=== PATIENT | female | born 1935 | race Caucasian/White ===

== ENCOUNTER 2016-07-12 14:44 | Inpatient (IN) | payer MEDICARE, OTHER ==
[~2016-07-12] VITALS: Ht 165.1 cm; Wt 68.0 kg
[2016-07-12] MEDS ORDERED: IV NORMAL SALINE 1000ML BAG 1,000 ML IV SCH (15:39)
--- NOTE | 2016-07-12 15:43 | ED.ADGEN ---
Past Medical History Past Medical History: CVA Past Surgical History: Other Additional Past Surgical Histo: UNKNOWN Alcohol Use: None Drug Use: None Adult General Chief Complaint Chief Complaint: SEIZURE HPI HPI Patient is a 81 year old female brought to emergency department after a witnessed seizure. Per EMS report a neighbor had gone over to visit and when she opened the door she witnessed her seizing. The patient was a bit confused and possibly postictal when she arrived in the emergency department. By time that I saw her she was still confused but was able to provide me poor although some history. She denies any history of seizures. She reports a history of hypertension for which she takes blood pressure medicine although she cannot recall the names of them. He does remember that she gets her medications filled at [facility] at [address] Her son did pull me into the hallway and tell me that his mom is withholding some information. He tells me that she is a daily drinker. He believes that she had at least a "partial stroke" about 8 months ago. Review of Systems Review of Systems Constitutional: Denies fever or chills. [] Eyes: Denies change in visual acuity. [] HENT: Denies nasal congestion or sore throat. [] Respiratory: Denies cough or shortness of breath. [] Cardiovascular: Denies chest pain or edema. [] GI: Denies abdominal pain, nausea, vomiting, bloody stools or diarrhea. [] : Denies dysuria. [] Musculoskeletal: Denies back pain or joint pain. [] Integument: Denies rash. [] Neurologic: Denies headache, focal weakness or sensory changes. [] Endocrine: Denies polyuria or polydipsia. [] Lymphatic: Denies swollen glands. [] Psychiatric: Denies depression or anxiety. [] Current Medications Current Medications Current Medications Medications (Trade) Dose Ordered Sig/Anthony Start Time Stop Time Status Last Admin Dose Admin Sodium Chloride (Iv Sodium Chloride 0.9% 1000ml Bag) 1,000 ml @ 1,000 mls/hr Q1H 07/12/16 15:39 07/12/16 16:38 DC 07/12/16 16:08 1,000 MLS/HR Allergies Allergies Allergies Coded Allergies Type Severity Reaction Last Updated Verified No Known Drug Allergies 07/12/16 No Physical Exam Physical Exam Constitutional: Well developed, well nourished, no acute distress, non-toxic appearance. [] HENT: Normocephalic, atraumatic, bilateral external ears normal, oropharynx moist, no oral exudates, nose normal. [] Eyes: PERRLA, EOMI, conjunctiva normal, no discharge. [] Neck: Normal range of motion, no tenderness, supple, no stridor. [] Cardiovascular:Heart rate regular rhythm, no murmur [] Lungs & Thorax: Bilateral breath sounds clear to auscultation [] Abdomen: Bowel sounds normal, soft, no tenderness, no masses, no pulsatile masses. [] Skin: Warm, dry, no erythema, no rash. [] Back: No tenderness, no CVA tenderness. [] Extremities: No tenderness, no cyanosis, no clubbing, ROM intact, no edema. [] Neurologic: Alert and oriented X person and place, normal motor function, normal sensory function, no focal deficits noted. [] Psychologic: Affect normal, judgement normal, mood normal. [] Current Patient Data Vital Signs Vital Signs Date Time Temp Pulse Resp B/P Pulse Ox O2 Delivery O2 Flow Rate FiO2 07/12/16 14:44 97.7 97 20 142/71 93 Room Air 97.7 Lab Values Laboratory Tests Test 07/12/16 15:10 07/12/16 15:20 Urine Collection Type U cath Urine Color Dk yellow Urine Clarity Turbid Urine pH 5.5 Urine Specific [place] 1.015 Urine Protein 100mg/dL (NEG-TRACE) Urine Glucose (UA) Negativemg/dL (NEG) Urine Ketones (Stick) 15mg/dL (NEG) Urine Blood Moderate (NEG) Urine Nitrite Positive (NEG) Urine Bilirubin Negative (NEG) Urine Urobilinogen Dipstick 1.0mg/dL (0.2 mg/dL) Urine Leukocyte Esterase Large (NEG) Urine RBC 3-5/HPF (0-2) Urine WBC Tntc/HPF (0-4) Urine Squamous Epithelial Cells Occ/LPF Urine Transitional Epithelial Cells Occ/LPF Urine Renal Epithelial Cells Occ/LPF Urine Bacteria Many/HPF (0-FEW) Urine Hyaline Casts Occasional/HPF Urine Mucus Slight/LPF Urine Opiates Screen Neg (NEG) Urine Methadone Screen Neg (NEG) Urine Barbiturates Neg (NEG) Urine Phencyclidine Screen Neg (NEG) Urine Amphetamine/Methamphetamine Neg (NEG) Urine Benzodiazepines Screen Neg (NEG) Urine Cocaine Screen Neg (NEG) Urine Cannabinoids Screen Neg (NEG) Urine Ethyl Alcohol Pos (NEG) White Blood Count 7.0x10^3/uL (4.0-11.0) Red Blood Count 3.23x10^6/uL (3.50-5.40) L Hemoglobin 12.0g/dL (12.0-15.5) Hematocrit 33.9% (36.0-47.0) L Mean Corpuscular Volume 105fL (79-100) H Mean Corpuscular Hemoglobin 37pg (25-35) H Mean Corpuscular Hemoglobin Concent 36g/dL (31-37) Red Cell Distribution Width 15.2% (11.5-14.5) H Platelet Count 229x10^3/uL (140-400) Neutrophils (%) (Auto) 83% (31-73) H Lymphocytes (%) (Auto) 11% (24-48) L Monocytes (%) (Auto) 5% (0-9) Eosinophils (%) (Auto) 1% (0-3) Basophils (%) (Auto) 1% (0-3) Neutrophils # (Auto) 5.8x10^3uL (1.8-7.7) Lymphocytes # (Auto) 0.8x10^3/uL (1.0-4.8) L Monocytes # (Auto) 0.3x10^3/uL (0.0-1.1) Eosinophils # (Auto) 0.0x10^3/uL (0.0-0.7) Basophils # (Auto) 0.0x10^3/uL (0.0-0.2) Prothrombin Time 14.2SEC (11.7-14.0) H Prothrombin Time INR 1.2 (0.8-1.1) H PTT 31SEC (24-38) Sodium Level 128mmol/L (136-145) L Potassium Level 3.7mmol/L (3.5-5.1) Chloride Level 88mmol/L (98-107) L Carbon Dioxide Level 17mmol/L (21-32) L Anion Gap 23 (6-14) H Blood Urea Nitrogen 10mg/dL (7-20) Creatinine 0.8mg/dL (0.6-1.0) Estimated GFR (Cockcroft-Gault) 69.2 BUN/Creatinine Ratio 13 (6-20) Glucose Level 115mg/dL (70-99) H Calcium Level 9.3mg/dL (8.5-10.1) Total Bilirubin 1.4mg/dL (0.2-1.0) H Aspartate Amino Transferase (AST) 111U/L (15-37) H Alanine Aminotransferase (ALT) 91U/L (14-59) H Alkaline Phosphatase 75U/L (46-116) Creatine Kinase 87U/L (26-192) Creatine Kinase MB (Mass) 2.5ng/mL (0.0-3.6) Creatine Kinase MB Relative Index 2.9% (0-4) Troponin I Quantitative < 0.017ng/mL (0.000-0.055) MI-Ovl-L-Type Natriuretic Peptide 282pg/mL (0-449) Total Protein 8.0g/dL (6.4-8.2) Albumin 4.1g/dL (3.4-5.0) Albumin/Globulin Ratio 1.1 (1.0-1.7) Lipase 91U/L (73-393) Ethyl Alcohol Level 16mg/dL (0-10) H Laboratory Tests 07/12/16 15:20 Laboratory Tests 07/12/16 15:20 EKG EKG EKG interpreted by me, sinus tachycardia, 101 beats for minute, leftward axis, no ST segment elevation. [] Radiology/Procedures Radiology/Procedures Chest x-ray interpreted by me, no acute cardiopulmonary process. PROCEDURE CT head without contrast dated 07/12/2016. HISTORY Altered mental status. History old of CVA. TECHNIQUE Contiguous axial imaging of the head was performed from skull base to vertex.Exposure: One or more of the following individualized dose reduction techniques were utilized for this exam: 1. Automated exposure control. 2. Adjustment of the mA and/or kV according to patient size. 3. Use of iterative reconstruction technique. COMPARISON None. FINDINGS Ventricles and sulci are mildly prominent for age. No midline shift or mass effect. Brain parenchyma is of normal attenuation. No hemorrhage or extra-axial collection. Minimal patchy low density in the deep/subcortical periventricular white matter. Posterior fossa and brainstem unremarkable. Visualized paranasal sinuses and mastoid air cells are clear. No acute calvarial abnormality. IMPRESSION - No evidence of acute intracranial hemorrhage or mass. - Mild chronic small vessel ischemic changes and atrophy. Electronically signed by: Dank Sloan (Jul 12, 2016 17:02:24)[] Course & Med Decision Making Course & Med Decision Making Pertinent Labs and Imaging studies reviewed. (See chart for details) Patient has had no more issues while here in the emergency department although she does remain alert and oriented only to person and place. She does still have trace of alcohol less than her system. She is hyponatremic. We have started replacing her fluids. She does have a urinary tract infection. I have ordered a dose of Rocephin for her here in the emergency department. She will be admitted to the hospitalist service for further evaluation and treatment. [] Dragon Disclaimer Dragon Disclaimer This electronic medical record was generated, in whole or in part, using a voice recognition dictation system. ONEAL MCFARLANE MD Jul 12, 2016 15:43
--- NOTE | 2016-07-12 15:44 | EKG ---
[facility] [address] [place] [address] Test Date: 2016-07-12 Test Time: 15:09:09 Pat Name: JEOVANNY MOE Department: Room: Gender: F Building D[place]antler: : 1935 Requested By: ONEAL MCFARLANE Order Number: [id number] Reading MD: Malissa Mayes Measurements Intervals [place] Rate: 101 P: -68 W[place]: 130 QRS: -14 QRSD: 96 T: 40 QT: 342 QTc: 444 Interpretive Statements SINUS TACHYCARDIA LEFTWARD AXIS NO SPECIFIC ECG ABNORMALITIES RI6.01 No previous ECG available for comparison Electronically Signed On 07-13-2016 19:18:12 CDT by Malissa Mayes
[2016-07-12 15:51] LABS: BILIRUBIN,URINE NEGATIVE (NEG); GLUCOSE,URINE NEGATIVE (NEG); NITRITE,URINE POSITIVE (NEG); PH,URINE 5.5; PROTEIN,URINE 100 mg/dL (NEG-TRACE)
[2016-07-12 15:52] LABS: BASO % 1 % (0-3); EOS % 1 % (0-3); HEMATOCRIT 33.9 % (36.0-47.0); LYMPH # 0.8 x10^3/uL (1.0-4.8); LYMPH % 11 % (24-48); MEAN CORPUSCULAR HEMOGLOBIN 37 pg (25-35); MEAN CORPUSCULAR HGB CONC 36 g/dL (31-37); MEAN CORPUSCULAR VOLUME 105 fL (79-100); MONO % 5 % (0-9); NEUT % 83 % (31-73); PLATELET COUNT 229 x10^3/uL (140-400); RED BLOOD COUNT 3.23 x10^6/uL (3.50-5.40); RED CELL DISTRIBUTION WIDTH 15.2 % (11.5-14.5)
[2016-07-12 16:01] LABS: INR 1.2 (0.8-1.1); PROTHROMBIN TIME PATIENT 14.2 SEC (11.7-14.0)
[2016-07-12 16:02] LABS: BACTERIA,URINE MANY /HPF (0-FEW); SQUAMOUS EPITHELIAL CELL,UR OCC /LPF; WBC,URINE TNTC /HPF (0-4)
[2016-07-12 16:04] LABS: CALCIUM 9.3 mg/dL (8.5-10.1); CREATININE 0.8 mg/dL (0.6-1.0); GFR 69.2; POTASSIUM 3.7 mmol/L (3.5-5.1)
[2016-07-12 16:09] LABS: BARBITURATES NEG (NEG); BENZODIAZEPINES NEG (NEG); CANNABINOIDS NEG (NEG); COCAINE NEG (NEG); METHADONE NEG (NEG); OPIATES NEG (NEG); PHENCYCLIDINE NEG (NEG)
[2016-07-12 16:09] LABS: ALBUMIN 4.1 g/dL (3.4-5.0); ALBUMIN/GLOBULIN RATIO 1.1 (1.0-1.7); TOTAL BILIRUBIN 1.4 mg/dL (0.2-1.0)
[2016-07-12 16:10] LABS: ETHANOL, URINE POS (NEG)
[2016-07-12 16:17] LABS: CKMB INDEX 2.9 % (0-4); CKMB MASS 2.5 ng/mL (0.0-3.6)
--- NOTE | 2016-07-12 17:03 | RAD ---
PROCEDURE CT head without contrast dated 07/12/2016. HISTORY Altered mental status. History old of CVA. TECHNIQUE Contiguous axial imaging of the head was performed from skull base to vertex.Exposure: One or more of the following individualized dose reduction techniques were utilized for this exam: 1. Automated exposure control. 2. Adjustment of the mA and/or kV according to patient size. 3. Use of iterative reconstruction technique. COMPARISON None. FINDINGS Ventricles and sulci are mildly prominent for age. No midline shift or mass effect. Brain parenchyma is of normal attenuation. No hemorrhage or extra-axial collection. Minimal patchy low density in the deep/subcortical periventricular white matter. Posterior fossa and brainstem unremarkable. Visualized paranasal sinuses and mastoid air cells are clear. No acute calvarial abnormality. IMPRESSION - No evidence of acute intracranial hemorrhage or mass. - Mild chronic small vessel ischemic changes and atrophy. Electronically signed by: Dank Sloan (Jul 12, 2016 17:02:24)
[2016-07-12] MEDS: IV NORMAL SALINE 1000ML BAG 1,000 ML IV SCH (17:27)
[2016-07-12] MEDS ORDERED: ONDANSETRON PF 4 MG/2 ML VIAL. IV PRN (17:30)
--- NOTE | 2016-07-12 17:54 | ACF ---
Admission Forms Criteria SEIZURE Clinical Indications for Admission to Inpatient Care (Place 'X' for any and all applicable criteria): Admission is indicated for seizure and ANY ONE of the following(1)(2)(3)(4)(5): [X]I. Inpatient admission required rather than observation care (Also use Seizure: Observation Care Criteria as appropriate) because of ANY ONE of the following: [ ]a) Altered mental status that is severe or persistent [ ]b) New focal neurologic deficit that is severe or persistent [X]c) Metabolic disorder (eg, hypoglycemia, hyponatremia) that is severe or persistent [ ]d) Recurrent seizure [ ]e) Outpatient antiseizure regimen cannot be established (eg , patient cannot tolerate medication, initiation requires inpatient care) [ ]f) Need for ongoing intravenous infusion of antiseizure medication [ ]g) Cardiac arrhythmias of immediate concern [ ]h) Cerebral bleeding, hydrocephalus, or vasospasm monitoring (14) [ ]i) Increased intracranial pressure or cerebral edema monitoring (15) [ ]j) Other treatment or monitoring requiring inpatient admission [ ]II. Status epilepticus [A] or repetitive seizures not controlled with emergent treatment (6)(8) [ ]III. Brain disorder (eg, tumor, edema, and hydrocephalus) that requiring monitoring or intervention available only at inpatient level of care. [ ]IV. Brain insult (eg, severe trauma, stroke, drug toxicity, or withdrawal) that requires monitoring or intervention available only at inpatient level of care (10)(11) Extended stay beyond goal length of stay may be needed for (22) [ ]a) Complications of status epilepticus [ ]b) Refractory status epilepticus [ ]c) Etiology-specific therapy for conditions such as REGULATORY PROCESS MANAGER infection, head injury,eclampsia, severe metabolic abnormalities, and brain tumor [ ]d) Residual neurologic damage, [ ]e) Initiation of significant change to anticonvulsant treatment [ ]f) Older patients (65 years or older) [ ]g) Patient requiring intubation (eg, to protect airway) The original [employer] content created by [employer] has been revised. The portions of the content which have been revised are identified through the use of italic text or in bold, and [facility] [employer] has neither reviewed nor approved the modified material. All other unmodified content is copyright [facility] [employer]. Please see references footnoted in the original [facility] edition 2016 Admission Criteria Met?: Yes ÁNGEL HASTINGS Jul 12, 2016 17:54
[2016-07-12] MEDS ORDERED: CEFTRIAXONE 1GM IVPB FOR OMNI 50 ML IV ONE (18:15)
[2016-07-12] MEDS ORDERED: LISI-334 PO (19:52)
[2016-07-12] MEDS: METOPROLOL TART IMMED RELEASE 25 MG TABLET. PO SCH (20:25)
--- NOTE | 2016-07-12 21:31 | HP ---
ADMIT DATE: 07/12/2016 CHIEF COMPLAINT: Seizure. HISTORY OF PRESENT ILLNESS: The patient is a 81-year-old woman with past medical history of CVA, hypertension, who was brought to the Emergency Room after a witnessed seizure. The patient herself remembers only that she had come down her stairs to open the front door for her neighbor. At which time she felt dizzy and lightheaded. She does not remember further events until waking up in the Emergency Room. Her girlfriend neighbor, who had come, visiting reported that the seizure, called EMS. She was, however, not present in the Emergency Room. PAST MEDICAL HISTORY: Hypertension, CVA. FAMILY HISTORY: Positive only for hypertension. SOCIAL HISTORY: Lives by herself, x 6 years. Never smoked, drinks 1 vodka and sprite every night. ALLERGIES: No known drug allergies. HOME MEDICATIONS: Not available at this time. She does not recall names. REVIEW OF SYSTEMS: The patient is currently coherent, denies any ongoing aches or pains. No headache, vision problems, weakness or other neurological symptoms. Rest of organ system review is negative. PHYSICAL EXAMINATION: VITAL SIGNS: From today show a blood pressure of 168/76, heart rate of 100, respiratory rate of 22. She is afebrile. GENERAL: This is a well-nourished, 81-year-old, woman, alert and oriented, in no acute distress. Affect is flat. HEENT: Shows no scleral icterus. NECK: Supple. LUNGS: Clear to auscultation bilaterally. CARDIOVASCULAR: Heart is regular rate and rhythm without any murmurs. ABDOMEN: Has positive bowel sounds, soft, nontender. EXTREMITIES: Show no edema, no clubbing, no cyanosis. SKIN: Warm, soft and dry without any rash. LABORATORY DATA: CBC with a WBC of 7.0, hemoglobin 12.0, MCV of 105, platelets of 229, BUN and creatinine of 10 and 0.8, sodium of 128 with chloride of 88, potassium at 3.7. LFTs with an AST, ALT of 111 and 91, total bilirubin at 1.4, alkaline phosphatase at 75, CK and initial troponin are negative. Albumin at 4.1. Coags are within normal limits. Urine with TNTC, wbc and many bacteria. Tox screen positive at 16. IMAGING: CT of the head without any contrast shows no evidence of acute intracranial hemorrhage or mass, mild chronic small vessel ischemic changes and atrophy are noted. ASSESSMENT AND PLAN: The patient is a 81-year-old woman, who was noted to have an episode of shaking. It is not quite clear if this was a true seizure versus tremoring with syncope. We will obtain Neurology and Cardiology consults for further workup. She does have a history of hypertension and potential cardiovascular accident according to the son. No evidence of new stroke on recent CT this morning. She will be placed on tele. We will monitor her blood pressures, start her on aspirin 325, start beta blockers. We will check lipid profile as well and probably placed on statin. The patient does have a history of alcohol use. She admits to a single drink. However, her alcohol level at 9:30 in the morning was actually positive. I am not sure if she actually drinks more than she admits to. Monitor. Low threshold for starting CIWA protocol. She has a macrocytic anemia, which may be B12 or folate deficiency, but in this patient is suspicious for alcohol-induced abnormality. Labs pending. Also, transaminases and bilirubin are elevated, possibly due to chronic alcohol abuse. Hepatitis panel will be obtained. She presents with signs of UTI as well. Culture is pending. In the meantime, she has been started on mpiric ceftriaxone. Hyponatremia, at this time is unexplained. Levels are not really low enough to be responsible for seizures unless this was a sudden drop. There is no history of that suggest that recently any changes have occurred, could be responsible for this. We will replete with IV fluids, recheck in the morning. ANGELA MICHELLE MD DR: YOU/nts JOB#: [id number] / [id number] BRIAN
[2016-07-12 23:00] VITALS: BP 131/83
[2016-07-13] MEDS: IV NORMAL SALINE 1000ML BAG 1,000 ML IV SCH ×2 (02:49→11:12)
[2016-07-13 03:27] VITALS: BP 174/93
[2016-07-13 04:48] LABS: BASO % 0 % (0-3); EOS % 0 % (0-3); HEMATOCRIT 33.7 % (36.0-47.0); LYMPH # 0.7 x10^3/uL (1.0-4.8); LYMPH % 11 % (24-48); MEAN CORPUSCULAR HEMOGLOBIN 37 pg (25-35); MEAN CORPUSCULAR HGB CONC 36 g/dL (31-37); MEAN CORPUSCULAR VOLUME 104 fL (79-100); MONO % 7 % (0-9); NEUT % 81 % (31-73); PLATELET COUNT 184 x10^3/uL (140-400); RED BLOOD COUNT 3.25 x10^6/uL (3.50-5.40); RED CELL DISTRIBUTION WIDTH 15.1 % (11.5-14.5); WHITE BLOOD COUNT 6.4 x10^3/uL (4.0-11.0)
[2016-07-13 05:15] LABS: ALBUMIN 3.9 g/dL (3.4-5.0); CREATININE 0.6 mg/dL (0.6-1.0); GFR 96.4; MAGNESIUM 1.4 mg/dL (1.8-2.4); POTASSIUM 3.5 mmol/L (3.5-5.1); TOTAL PROTEIN 7.8 g/dL (6.4-8.2)
[2016-07-13 05:16] LABS: CHOLESTEROL 226 mg/dL (0-200); TRIGLYCERIDES 43 mg/dL (0-150)
[2016-07-13 05:41] LABS: HDLC > 150 mg/dL (40-60)
[2016-07-13 07:15] VITALS: BP 173/90
[2016-07-13] MEDS: ASPIRIN ENTERIC COATED 325 MG TABLET.DR. PO SCH (08:02)
[2016-07-13] MEDS: METOPROLOL TART IMMED RELEASE 25 MG TABLET. PO SCH ×2 (08:03→20:50)
--- NOTE | 2016-07-13 08:24 | RAD ---
EXAM: Chest, single view. HISTORY: Altered mental status. COMPARISON: None. FINDINGS: A frontal view of the chest is obtained. There is no infiltrate, effusion or pneumothorax. The heart is normal in size for portable technique. IMPRESSION: No acute pulmonary finding.
[2016-07-13 10:50] VITALS: BP 151/74
--- NOTE | 2016-07-13 10:52 | PDOC ---
PROGRESS NOTES Chief Complaint Chief Complaint Seizure Hyponatremia UTI Hypertension CVA. 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 History of Present Illness History of Present Illness A&O VSS Talkative DW RN In bed resting Vitals Vitals Vital Signs Date Time Temp Pulse Resp B/P Pulse Ox O2 Delivery O2 Flow Rate FiO2 07/13/16 08:03 79 173/90 07/13/16 07:30 Room Air 07/13/16 07:15 97.5 20 96 97.5 Physical Exam General: Alert, Oriented X3 Heart: Regular rate, Normal S1 Lungs: Clear Abdomen: Normal bowel sounds, Soft Extremities: No clubbing, No cyanosis Skin: No rashes, No breakdown Labs LABS Laboratory Tests Test 07/12/16 15:10 07/12/16 15:20 07/13/16 04:10 Urine Collection Type U cath Urine Color Dk yellow Urine Clarity Turbid Urine pH 5.5 Urine Specific Carefree 1.015 Urine Protein 100mg/dL (NEG-TRACE) Urine Glucose (UA) Negativemg/dL (NEG) Urine Ketones (Stick) 15mg/dL (NEG) Urine Blood Moderate (NEG) Urine Nitrite Positive (NEG) Urine Bilirubin Negative (NEG) Urine Urobilinogen Dipstick 1.0mg/dL (0.2 mg/dL) Urine Leukocyte Esterase Large (NEG) Urine RBC 3-5/HPF (0-2) Urine WBC Tntc/HPF (0-4) Urine Squamous Epithelial Cells Occ/LPF Urine Transitional Epithelial Cells Occ/LPF Urine Renal Epithelial Cells Occ/LPF Urine Bacteria Many/HPF (0-FEW) Urine Hyaline Casts Occasional/HPF Urine Mucus Slight/LPF Urine Opiates Screen Neg (NEG) Urine Methadone Screen Neg (NEG) Urine Barbiturates Neg (NEG) Urine Phencyclidine Screen Neg (NEG) Urine Amphetamine/Methamphetamine Neg (NEG) Urine Benzodiazepines Screen Neg (NEG) Urine Cocaine Screen Neg (NEG) Urine Cannabinoids Screen Neg (NEG) Urine Ethyl Alcohol Pos (NEG) White Blood Count 7.0x10^3/uL (4.0-11.0) 6.4x10^3/uL (4.0-11.0) Red Blood Count 3.23x10^6/uL (3.50-5.40) 3.25x10^6/uL (3.50-5.40) Hemoglobin 12.0g/dL (12.0-15.5) 12.0g/dL (12.0-15.5) Hematocrit 33.9% (36.0-47.0) 33.7% (36.0-47.0) Mean Corpuscular Volume 105fL (79-100) 104fL (79-100) Mean Corpuscular Hemoglobin 37pg (25-35) 37pg (25-35) Mean Corpuscular Hemoglobin Concent 36g/dL (31-37) 36g/dL (31-37) Red Cell Distribution Width 15.2% (11.5-14.5) 15.1% (11.5-14.5) Platelet Count 229x10^3/uL (140-400) 184x10^3/uL (140-400) Neutrophils (%) (Auto) 83% (31-73) 81% (31-73) Lymphocytes (%) (Auto) 11% (24-48) 11% (24-48) Monocytes (%) (Auto) 5% (0-9) 7% (0-9) Eosinophils (%) (Auto) 1% (0-3) 0% (0-3) Basophils (%) (Auto) 1% (0-3) 0% (0-3) Neutrophils # (Auto) 5.8x10^3uL (1.8-7.7) 5.2x10^3uL (1.8-7.7) Lymphocytes # (Auto) 0.8x10^3/uL (1.0-4.8) 0.7x10^3/uL (1.0-4.8) Monocytes # (Auto) 0.3x10^3/uL (0.0-1.1) 0.4x10^3/uL (0.0-1.1) Eosinophils # (Auto) 0.0x10^3/uL (0.0-0.7) 0.0x10^3/uL (0.0-0.7) Basophils # (Auto) 0.0x10^3/uL (0.0-0.2) 0.0x10^3/uL (0.0-0.2) Prothrombin Time 14.2SEC (11.7-14.0) Prothromb Time International Ratio 1.2 (0.8-1.1) Activated Partial Thromboplast Time 31SEC (24-38) Sodium Level 128mmol/L (136-145) 132mmol/L (136-145) Potassium Level 3.7mmol/L (3.5-5.1) 3.5mmol/L (3.5-5.1) Chloride Level 88mmol/L (98-107) 95mmol/L (98-107) Carbon Dioxide Level 17mmol/L (21-32) 26mmol/L (21-32) Anion Gap 23 (6-14) 11 (6-14) Blood Urea Nitrogen 10mg/dL (7-20) 8mg/dL (7-20) Creatinine 0.8mg/dL (0.6-1.0) 0.6mg/dL (0.6-1.0) Estimated GFR (Cockcroft-Gault) 69.2 96.4 BUN/Creatinine Ratio 13 (6-20) 13 (6-20) Glucose Level 115mg/dL (70-99) 111mg/dL (70-99) Calcium Level 9.3mg/dL (8.5-10.1) 9.0mg/dL (8.5-10.1) Total Bilirubin 1.4mg/dL (0.2-1.0) 2.0mg/dL (0.2-1.0) Aspartate Amino Transf (AST/SGOT) 111U/L (15-37) 80U/L (15-37) Alanine Aminotransferase (ALT/SGPT) 91U/L (14-59) 81U/L (14-59) Alkaline Phosphatase 75U/L (46-116) 71U/L (46-116) Creatine Kinase 87U/L (26-192) Creatine Kinase MB (Mass) 2.5ng/mL (0.0-3.6) Creatine Kinase MB Relative Index 2.9% (0-4) Troponin I Quantitative < 0.017ng/mL (0.000-0.055) SD-Zre-T-Type Natriuretic Peptide 282pg/mL (0-449) Total Protein 8.0g/dL (6.4-8.2) 7.8g/dL (6.4-8.2) Albumin 4.1g/dL (3.4-5.0) 3.9g/dL (3.4-5.0) Albumin/Globulin Ratio 1.1 (1.0-1.7) 1.0 (1.0-1.7) Lipase 91U/L (73-393) Ethyl Alcohol Level 16mg/dL (0-10) Magnesium Level 1.4mg/dL (1.8-2.4) Triglycerides Level 43mg/dL (0-150) Cholesterol Level 226mg/dL (0-200) LDL Cholesterol, Calculated 67mg/dL (0-100) VLDL Cholesterol, Calculated 9mg/dL (0-40) HDL Cholesterol > 150mg/dL (40-60) Cholesterol/HDL Ratio 1.0 Review of Systems Review of Systems co weakness co pain Assessment and Plan Assessmemt and Plan Problems Medical Problems: (1) Alcohol abuse Status: Acute (2) Hyponatremia Status: Acute (3) Seizure Status: Acute (4) UTI (urinary tract infection) Status: Acute Assessment: Seizure Hyponatremia UTI Hypertension CVA. 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 Labs Laboratory Tests Test 07/12/16 15:10 07/12/16 15:20 07/13/16 04:10 Urine Collection Type U cath Urine Color Dk yellow Urine Clarity Turbid Urine pH 5.5 Urine Specific Carefree 1.015 Urine Protein 100mg/dL (NEG-TRACE) Urine Glucose (UA) Negativemg/dL (NEG) Urine Ketones (Stick) 15mg/dL (NEG) Urine Blood Moderate (NEG) Urine Nitrite Positive (NEG) Urine Bilirubin Negative (NEG) Urine Urobilinogen Dipstick 1.0mg/dL (0.2 mg/dL) Urine Leukocyte Esterase Large (NEG) Urine RBC 3-5/HPF (0-2) Urine WBC Tntc/HPF (0-4) Urine Squamous Epithelial Cells Occ/LPF Urine Transitional Epithelial Cells Occ/LPF Urine Renal Epithelial Cells Occ/LPF Urine Bacteria Many/HPF (0-FEW) Urine Hyaline Casts Occasional/HPF Urine Mucus Slight/LPF Urine Opiates Screen Neg (NEG) Urine Methadone Screen Neg (NEG) Urine Barbiturates Neg (NEG) Urine Phencyclidine Screen Neg (NEG) Urine Amphetamine/Methamphetamine Neg (NEG) Urine Benzodiazepines Screen Neg (NEG) Urine Cocaine Screen Neg (NEG) Urine Cannabinoids Screen Neg (NEG) Urine Ethyl Alcohol Pos (NEG) White Blood Count 7.0x10^3/uL (4.0-11.0) 6.4x10^3/uL (4.0-11.0) Red Blood Count 3.23x10^6/uL (3.50-5.40) 3.25x10^6/uL (3.50-5.40) Hemoglobin 12.0g/dL (12.0-15.5) 12.0g/dL (12.0-15.5) Hematocrit 33.9% (36.0-47.0) 33.7% (36.0-47.0) Mean Corpuscular Volume 105fL (79-100) 104fL (79-100) Mean Corpuscular Hemoglobin 37pg (25-35) 37pg (25-35) Mean Corpuscular Hemoglobin Concent 36g/dL (31-37) 36g/dL (31-37) Red Cell Distribution Width 15.2% (11.5-14.5) 15.1% (11.5-14.5) Platelet Count 229x10^3/uL (140-400) 184x10^3/uL (140-400) Neutrophils (%) (Auto) 83% (31-73) 81% (31-73) Lymphocytes (%) (Auto) 11% (24-48) 11% (24-48) Monocytes (%) (Auto) 5% (0-9) 7% (0-9) Eosinophils (%) (Auto) 1% (0-3) 0% (0-3) Basophils (%) (Auto) 1% (0-3) 0% (0-3) Neutrophils # (Auto) 5.8x10^3uL (1.8-7.7) 5.2x10^3uL (1.8-7.7) Lymphocytes # (Auto) 0.8x10^3/uL (1.0-4.8) 0.7x10^3/uL (1.0-4.8) Monocytes # (Auto) 0.3x10^3/uL (0.0-1.1) 0.4x10^3/uL (0.0-1.1) Eosinophils # (Auto) 0.0x10^3/uL (0.0-0.7) 0.0x10^3/uL (0.0-0.7) Basophils # (Auto) 0.0x10^3/uL (0.0-0.2) 0.0x10^3/uL (0.0-0.2) Prothrombin Time 14.2SEC (11.7-14.0) Prothromb Time International Ratio 1.2 (0.8-1.1) Activated Partial Thromboplast Time 31SEC (24-38) Sodium Level 128mmol/L (136-145) 132mmol/L (136-145) Potassium Level 3.7mmol/L (3.5-5.1) 3.5mmol/L (3.5-5.1) Chloride Level 88mmol/L (98-107) 95mmol/L (98-107) Carbon Dioxide Level 17mmol/L (21-32) 26mmol/L (21-32) Anion Gap 23 (6-14) 11 (6-14) Blood Urea Nitrogen 10mg/dL (7-20) 8mg/dL (7-20) Creatinine 0.8mg/dL (0.6-1.0) 0.6mg/dL (0.6-1.0) Estimated GFR (Cockcroft-Gault) 69.2 96.4 BUN/Creatinine Ratio 13 (6-20) 13 (6-20) Glucose Level 115mg/dL (70-99) 111mg/dL (70-99) Calcium Level 9.3mg/dL (8.5-10.1) 9.0mg/dL (8.5-10.1) Total Bilirubin 1.4mg/dL (0.2-1.0) 2.0mg/dL (0.2-1.0) Aspartate Amino Transf (AST/SGOT) 111U/L (15-37) 80U/L (15-37) Alanine Aminotransferase (ALT/SGPT) 91U/L (14-59) 81U/L (14-59) Alkaline Phosphatase 75U/L (46-116) 71U/L (46-116) Creatine Kinase 87U/L (26-192) Creatine Kinase MB (Mass) 2.5ng/mL (0.0-3.6) Creatine Kinase MB Relative Index 2.9% (0-4) Troponin I Quantitative < 0.017ng/mL (0.000-0.055) EP-Pdg-M-Type Natriuretic Peptide 282pg/mL (0-449) Total Protein 8.0g/dL (6.4-8.2) 7.8g/dL (6.4-8.2) Albumin 4.1g/dL (3.4-5.0) 3.9g/dL (3.4-5.0) Albumin/Globulin Ratio 1.1 (1.0-1.7) 1.0 (1.0-1.7) Lipase 91U/L (73-393) Ethyl Alcohol Level 16mg/dL (0-10) Magnesium Level 1.4mg/dL (1.8-2.4) Triglycerides Level 43mg/dL (0-150) Cholesterol Level 226mg/dL (0-200) LDL Cholesterol, Calculated 67mg/dL (0-100) VLDL Cholesterol, Calculated 9mg/dL (0-40) HDL Cholesterol > 150mg/dL (40-60) Cholesterol/HDL Ratio 1.0 Laboratory Tests Test 07/12/16 15:10 07/12/16 15:20 07/13/16 04:10 Urine Collection Type U cath Urine Color Dk yellow Urine Clarity Turbid Urine pH 5.5 Urine Specific Carefree 1.015 Urine Protein 100mg/dL (NEG-TRACE) Urine Glucose (UA) Negativemg/dL (NEG) Urine Ketones (Stick) 15mg/dL (NEG) Urine Blood Moderate (NEG) Urine Nitrite Positive (NEG) Urine Bilirubin Negative (NEG) Urine Urobilinogen Dipstick 1.0mg/dL (0.2 mg/dL) Urine Leukocyte Esterase Large (NEG) Urine RBC 3-5/HPF (0-2) Urine WBC Tntc/HPF (0-4) Urine Squamous Epithelial Cells Occ/LPF Urine Transitional Epithelial Cells Occ/LPF Urine Renal Epithelial Cells Occ/LPF Urine Bacteria Many/HPF (0-FEW) Urine Hyaline Casts Occasional/HPF Urine Mucus Slight/LPF Urine Opiates Screen Neg (NEG) Urine Methadone Screen Neg (NEG) Urine Barbiturates Neg (NEG) Urine Phencyclidine Screen Neg (NEG) Urine Amphetamine/Methamphetamine Neg (NEG) Urine Benzodiazepines Screen Neg (NEG) Urine Cocaine Screen Neg (NEG) Urine Cannabinoids Screen Neg (NEG) Urine Ethyl Alcohol Pos (NEG) White Blood Count 7.0x10^3/uL (4.0-11.0) 6.4x10^3/uL (4.0-11.0) Red Blood Count 3.23x10^6/uL (3.50-5.40) 3.25x10^6/uL (3.50-5.40) Hemoglobin 12.0g/dL (12.0-15.5) 12.0g/dL (12.0-15.5) Hematocrit 33.9% (36.0-47.0) 33.7% (36.0-47.0) Mean Corpuscular Volume 105fL (79-100) 104fL (79-100) Mean Corpuscular Hemoglobin 37pg (25-35) 37pg (25-35) Mean Corpuscular Hemoglobin Concent 36g/dL (31-37) 36g/dL (31-37) Red Cell Distribution Width 15.2% (11.5-14.5) 15.1% (11.5-14.5) Platelet Count 229x10^3/uL (140-400) 184x10^3/uL (140-400) Neutrophils (%) (Auto) 83% (31-73) 81% (31-73) Lymphocytes (%) (Auto) 11% (24-48) 11% (24-48) Monocytes (%) (Auto) 5% (0-9) 7% (0-9) Eosinophils (%) (Auto) 1% (0-3) 0% (0-3) Basophils (%) (Auto) 1% (0-3) 0% (0-3) Neutrophils # (Auto) 5.8x10^3uL (1.8-7.7) 5.2x10^3uL (1.8-7.7) Lymphocytes # (Auto) 0.8x10^3/uL (1.0-4.8) 0.7x10^3/uL (1.0-4.8) Monocytes # (Auto) 0.3x10^3/uL (0.0-1.1) 0.4x10^3/uL (0.0-1.1) Eosinophils # (Auto) 0.0x10^3/uL (0.0-0.7) 0.0x10^3/uL (0.0-0.7) Basophils # (Auto) 0.0x10^3/uL (0.0-0.2) 0.0x10^3/uL (0.0-0.2) Prothrombin Time 14.2SEC (11.7-14.0) Prothromb Time International Ratio 1.2 (0.8-1.1) Activated Partial Thromboplast Time 31SEC (24-38) Sodium Level 128mmol/L (136-145) 132mmol/L (136-145) Potassium Level 3.7mmol/L (3.5-5.1) 3.5mmol/L (3.5-5.1) Chloride Level 88mmol/L (98-107) 95mmol/L (98-107) Carbon Dioxide Level 17mmol/L (21-32) 26mmol/L (21-32) Anion Gap 23 (6-14) 11 (6-14) Blood Urea Nitrogen 10mg/dL (7-20) 8mg/dL (7-20) Creatinine 0.8mg/dL (0.6-1.0) 0.6mg/dL (0.6-1.0) Estimated GFR (Cockcroft-Gault) 69.2 96.4 BUN/Creatinine Ratio 13 (6-20) 13 (6-20) Glucose Level 115mg/dL (70-99) 111mg/dL (70-99) Calcium Level 9.3mg/dL (8.5-10.1) 9.0mg/dL (8.5-10.1) Total Bilirubin 1.4mg/dL (0.2-1.0) 2.0mg/dL (0.2-1.0) Aspartate Amino Transf (AST/SGOT) 111U/L (15-37) 80U/L (15-37) Alanine Aminotransferase (ALT/SGPT) 91U/L (14-59) 81U/L (14-59) Alkaline Phosphatase 75U/L (46-116) 71U/L (46-116) Creatine Kinase 87U/L (26-192) Creatine Kinase MB (Mass) 2.5ng/mL (0.0-3.6) Creatine Kinase MB Relative Index 2.9% (0-4) Troponin I Quantitative < 0.017ng/mL (0.000-0.055) IO-Qul-J-Type Natriuretic Peptide 282pg/mL (0-449) Total Protein 8.0g/dL (6.4-8.2) 7.8g/dL (6.4-8.2) Albumin 4.1g/dL (3.4-5.0) 3.9g/dL (3.4-5.0) Albumin/Globulin Ratio 1.1 (1.0-1.7) 1.0 (1.0-1.7) Lipase 91U/L (73-393) Ethyl Alcohol Level 16mg/dL (0-10) Magnesium Level 1.4mg/dL (1.8-2.4) Triglycerides Level 43mg/dL (0-150) Cholesterol Level 226mg/dL (0-200) LDL Cholesterol, Calculated 67mg/dL (0-100) VLDL Cholesterol, Calculated 9mg/dL (0-40) HDL Cholesterol > 150mg/dL (40-60) Cholesterol/HDL Ratio 1.0 Medications Current Medications Sodium Chloride (Iv Sodium Chloride 0.9% 1000ml Bag) 1,000 ml @ 1,000 mls/hr Q1H IV Last administered on 07/12/16 16:08; Start 07/12/16 at 15:39; Stop at 16:38; Status DC Ondansetron HCl 4 mg 4 mg PRN Q8HRS PRN IV NAUSEA/VOMITING; Start 07/12/16 at 17 :30; Stop 07/13/16 at 17:29 Sodium Chloride 1,000 ml @ 120 mls/hr [id number] IV Last administered on 07/13/16 02:49; Start 07/12/16 at 17:27; Stop 07/13/16 at 17:26 Ceftriaxone Sodium (Rocephin 1gm Ivpb For Omni) 50 ml @ 100 mls/hr 1X ONCE IV Last administered on 07/12/16 17:51; Start 07/12/16 at 18:15; Stop 07/12/16 at 18:44; Status DC Metoprolol Tartrate (Lopressor) 25 mg BID PO Last administered on 07/13/16 08: 03; Start 07/12/16 at 21:00 Aspirin (Ecotrin) 325 mg [id number] PO Last administered on 07/13/16 08:02; Start 07/13/16 at 08:00 Active Scripts Active Reported Lisinopril 20 Mg Tablet 1 Tab PO DAILY Vitals/I & O Vital Sign - Last 24 Hours 07/12/16 07/12/16 07/12/16 07/12/16 14:44 14:54 15:24 15:54 Temp 97.7 97.7 Pulse 97 100 102 100 Resp 20 21 25 B/P 142/71 135/65 158/77 166/82 Pulse Ox 93 93 98 98 O2 Delivery Room Air Room Air Room Air Room Air 07/12/16 07/12/16 07/12/16 07/12/16 16:24 17:30 18:00 20:25 Pulse 100 108 100 100 Resp 17 16 24 B/P 181/77 171/95 168/76 168/76 Pulse Ox 98 98 98 O2 Delivery Room Air Room Air Room Air 07/12/16 07/12/16 07/13/16 07/13/16 21:42 23:00 03:27 07:15 Temp 97.7 97.9 97.5 97.7 97.9 97.5 Pulse 83 81 79 Resp 20 20 20 B/P 131/83 174/93 173/90 Pulse Ox 96 96 96 O2 Delivery Room Air Room Air Room Air Room Air 07/13/16 07/13/16 07:30 08:03 Pulse 79 B/P 173/90 O2 Delivery Room Air Intake and Output 07/12/16 07/12/16 07/13/16 15:00 23:00 07:00 Intake Total 1050 ml 0 ml Output Total 200 ml Balance 1050 ml -200 ml VISH ANGEL III DO Jul 13, 2016 10:52
[2016-07-13 14:56] VITALS: BP 162/83
--- NOTE | 2016-07-13 15:24 | PDOC2 ---
NEUROLOGY CONSULT Date of Admission Date of Admission DATE: 07/13/16 TIME: 15:11 Reason for Consult Reason for Consult: IMPRESSION: Seizure x 1 on 07/12/16. Metabolic encephalopathy. Confusion. Alcohol use. Hyponatremia, Na++ 128 UTI HTN HLD Elevated hepatic enzymes. Hx of CVA? RECOMMENDATIONS/PLAN: EEG No AED is recommended at this time for single provoked seizure. She has been on ASA daily. Zocor 40 mg HS. Vit B1 100 mg daily. Alcohol abstinence. Brain MRI if has further seizure. HISTORY OF THE PRESENT ILLNESS: 81-y-old female patient with above medical diseases has Hx of alcohol drinking 3-4 drinks a day of [place] for more than 2 years. She had a seizure described as a convulsion for a few minutes with postictal state on 07/12/16 to be brought to the ER of [facility]. No Hx of seizure in the past. She said she quit drinking about 2 months ago, but her alcohol level was 16 on test on 07/12. No focalized motor or sensory deficits. PAST MEDICAL HISTORY: Please see above. PAST SURGERY HISTORY: . ALLERGY: Unknown. MEDICATIONS: Refer to [facility] FAMILY HISTORY: Non contributory. SOCIAL HISTORY: Lives alone at home. Her about 1 year ago. She denies current smoking, drinking, and illicit drug use, but her alcohol level was 16 on 07/12. REVIEW OF SYSTEMS: Constitutional: No malnutrition, weight loss, cachexia. Head: No traumatic brain or head injury. Skin: No edema, or rash. Ear: No infection. Eyes: No vision loss or color blindness. Nose: No bleeding or purulent discharges. Hearing: No hearing decrease. Neck: No injury. Breast: No history of cancer, masses,or discharges. Cardiac: HTN, HLD. Pulmonary: No COPD. GI: No GI ulcer, GI bleeding. Urinary/genital: UTI. Endocrinologic: No cousin face, craniofacial dysmorphism. Skeletomuscular: No muscular atrophy, deformity. Neurological: see HP. Psychiatric: Denies drug use/abuse. Otherwise, not [id number] review of systems. PHYSICAL EXAMINATION: General appearance is in subacute distress. HEENT: Normocephalic and nontraumatic. Eyes, nose, ears, and throat are unremarkable. Neck is supple. No lymphadenopathy. No bruits are heard over the carotid artery. No crepitus. Cardiovascular: S1, S2, regular rate and rhythm. Pulmonary: Clear to auscultation bilaterally. Abdomen: Bowel sounds are positive. Abdomen is soft, nontender, and nondistended. Extremities: No rash, lesions, or edema. No restriction of range of motion NEUROLOGICAL EXAMINATION: Awake. Oriented to time, place and person, but reaction was slow. PERRL. EOMI. CN: no focal findings. Muscle tone: within normal. Muscle strength: 5 DTR: 2 Plantar reflex: Flexor response bilaterally Gait: not examined in bed. Sensory exam: no abnormal findings. No obvious cerebellar signs elicited. Current Medications Current Medications Current Medications Sodium Chloride (Iv Sodium Chloride 0.9% 1000ml Bag) 1,000 ml @ 1,000 mls/hr Q1H IV Last administered on 07/12/16 16:08; Start 07/12/16 at 15:39; Stop at 16:38; Status DC Ondansetron HCl 4 mg 4 mg PRN Q8HRS PRN IV NAUSEA/VOMITING; Start 07/12/16 at 17 :30; Stop 07/13/16 at 17:29 Sodium Chloride 1,000 ml @ 120 mls/hr Q8H20M IV Last administered on 07/13/16 11:12; Start 07/12/16 at 17:27; Stop 07/13/16 at 17:26 Ceftriaxone Sodium (Rocephin 1gm Ivpb For Omni) 50 ml @ 100 mls/hr 1X ONCE IV Last administered on 07/12/16 17:51; Start 07/12/16 at 18:15; Stop 07/12/16 at 18:44; Status DC Metoprolol Tartrate (Lopressor) 25 mg BID PO Last administered on 07/13/16 08: 03; Start 07/12/16 at 21:00 Aspirin (Ecotrin) 325 mg DAILYWBKFT PO Last administered on 07/13/16 08:02; Start 07/13/16 at 08:00 Active Scripts Active Reported Lisinopril 20 Mg Tablet 1 Tab PO DAILY Allergies Allergies: Coded Allergies: No Known Drug Allergies (Unverified , 07/12/16) Vitals VITALS Vital Signs Date Time Temp Pulse Resp B/P Pulse Ox O2 Delivery O2 Flow Rate FiO2 07/13/16 14:56 97.7 76 20 162/83 97 Room Air 97.7 Labs Labs Laboratory Tests Test 07/12/16 15:10 07/12/16 15:20 07/13/16 04:10 Urine Collection Type U cath Urine Color Dk yellow Urine Clarity Turbid Urine pH 5.5 Urine Specific [place] 1.015 Urine Protein 100mg/dL (NEG-TRACE) Urine Glucose (UA) Negativemg/dL (NEG) Urine Ketones (Stick) 15mg/dL (NEG) Urine Blood Moderate (NEG) Urine Nitrite Positive (NEG) Urine Bilirubin Negative (NEG) Urine Urobilinogen Dipstick 1.0mg/dL (0.2 mg/dL) Urine Leukocyte Esterase Large (NEG) Urine RBC 3-5/HPF (0-2) Urine WBC Tntc/HPF (0-4) Urine Squamous Epithelial Cells Occ/LPF Urine Transitional Epithelial Cells Occ/LPF Urine Renal Epithelial Cells Occ/LPF Urine Bacteria Many/HPF (0-FEW) Urine Hyaline Casts Occasional/HPF Urine Mucus Slight/LPF Urine Opiates Screen Neg (NEG) Urine Methadone Screen Neg (NEG) Urine Barbiturates Neg (NEG) Urine Phencyclidine Screen Neg (NEG) Urine Amphetamine/Methamphetamine Neg (NEG) Urine Benzodiazepines Screen Neg (NEG) Urine Cocaine Screen Neg (NEG) Urine Cannabinoids Screen Neg (NEG) Urine Ethyl Alcohol Pos (NEG) White Blood Count 7.0x10^3/uL (4.0-11.0) 6.4x10^3/uL (4.0-11.0) Red Blood Count 3.23x10^6/uL (3.50-5.40) 3.25x10^6/uL (3.50-5.40) Hemoglobin 12.0g/dL (12.0-15.5) 12.0g/dL (12.0-15.5) Hematocrit 33.9% (36.0-47.0) 33.7% (36.0-47.0) Mean Corpuscular Volume 105fL (79-100) 104fL (79-100) Mean Corpuscular Hemoglobin 37pg (25-35) 37pg (25-35) Mean Corpuscular Hemoglobin Concent 36g/dL (31-37) 36g/dL (31-37) Red Cell Distribution Width 15.2% (11.5-14.5) 15.1% (11.5-14.5) Platelet Count 229x10^3/uL (140-400) 184x10^3/uL (140-400) Neutrophils (%) (Auto) 83% (31-73) 81% (31-73) Lymphocytes (%) (Auto) 11% (24-48) 11% (24-48) Monocytes (%) (Auto) 5% (0-9) 7% (0-9) Eosinophils (%) (Auto) 1% (0-3) 0% (0-3) Basophils (%) (Auto) 1% (0-3) 0% (0-3) Neutrophils # (Auto) 5.8x10^3uL (1.8-7.7) 5.2x10^3uL (1.8-7.7) Lymphocytes # (Auto) 0.8x10^3/uL (1.0-4.8) 0.7x10^3/uL (1.0-4.8) Monocytes # (Auto) 0.3x10^3/uL (0.0-1.1) 0.4x10^3/uL (0.0-1.1) Eosinophils # (Auto) 0.0x10^3/uL (0.0-0.7) 0.0x10^3/uL (0.0-0.7) Basophils # (Auto) 0.0x10^3/uL (0.0-0.2) 0.0x10^3/uL (0.0-0.2) Prothrombin Time 14.2SEC (11.7-14.0) Prothromb Time International Ratio 1.2 (0.8-1.1) Activated Partial Thromboplast Time 31SEC (24-38) Sodium Level 128mmol/L (136-145) 132mmol/L (136-145) Potassium Level 3.7mmol/L (3.5-5.1) 3.5mmol/L (3.5-5.1) Chloride Level 88mmol/L (98-107) 95mmol/L (98-107) Carbon Dioxide Level 17mmol/L (21-32) 26mmol/L (21-32) Anion Gap 23 (6-14) 11 (6-14) Blood Urea Nitrogen 10mg/dL (7-20) 8mg/dL (7-20) Creatinine 0.8mg/dL (0.6-1.0) 0.6mg/dL (0.6-1.0) Estimated GFR (Cockcroft-Gault) 69.2 96.4 BUN/Creatinine Ratio 13 (6-20) 13 (6-20) Glucose Level 115mg/dL (70-99) 111mg/dL (70-99) Calcium Level 9.3mg/dL (8.5-10.1) 9.0mg/dL (8.5-10.1) Total Bilirubin 1.4mg/dL (0.2-1.0) 2.0mg/dL (0.2-1.0) Aspartate Amino Transf (AST/SGOT) 111U/L (15-37) 80U/L (15-37) Alanine Aminotransferase (ALT/SGPT) 91U/L (14-59) 81U/L (14-59) Alkaline Phosphatase 75U/L (46-116) 71U/L (46-116) Creatine Kinase 87U/L (26-192) Creatine Kinase MB (Mass) 2.5ng/mL (0.0-3.6) Creatine Kinase MB Relative Index 2.9% (0-4) Troponin I Quantitative < 0.017ng/mL (0.000-0.055) YK-Dfc-R-Type Natriuretic Peptide 282pg/mL (0-449) Total Protein 8.0g/dL (6.4-8.2) 7.8g/dL (6.4-8.2) Albumin 4.1g/dL (3.4-5.0) 3.9g/dL (3.4-5.0) Albumin/Globulin Ratio 1.1 (1.0-1.7) 1.0 (1.0-1.7) Lipase 91U/L (73-393) Ethyl Alcohol Level 16mg/dL (0-10) Magnesium Level 1.4mg/dL (1.8-2.4) Triglycerides Level 43mg/dL (0-150) Cholesterol Level 226mg/dL (0-200) LDL Cholesterol, Calculated 67mg/dL (0-100) VLDL Cholesterol, Calculated 9mg/dL (0-40) HDL Cholesterol > 150mg/dL (40-60) Cholesterol/HDL Ratio 1.0 Laboratory Tests Test 07/12/16 15:20 07/13/16 04:10 White Blood Count 7.0x10^3/uL (4.0-11.0) 6.4x10^3/uL (4.0-11.0) Red Blood Count 3.23x10^6/uL (3.50-5.40) 3.25x10^6/uL (3.50-5.40) Hemoglobin 12.0g/dL (12.0-15.5) 12.0g/dL (12.0-15.5) Hematocrit 33.9% (36.0-47.0) 33.7% (36.0-47.0) Mean Corpuscular Volume 105fL (79-100) 104fL (79-100) Mean Corpuscular Hemoglobin 37pg (25-35) 37pg (25-35) Mean Corpuscular Hemoglobin Concent 36g/dL (31-37) 36g/dL (31-37) Red Cell Distribution Width 15.2% (11.5-14.5) 15.1% (11.5-14.5) Platelet Count 229x10^3/uL (140-400) 184x10^3/uL (140-400) Neutrophils (%) (Auto) 83% (31-73) 81% (31-73) Lymphocytes (%) (Auto) 11% (24-48) 11% (24-48) Monocytes (%) (Auto) 5% (0-9) 7% (0-9) Eosinophils (%) (Auto) 1% (0-3) 0% (0-3) Basophils (%) (Auto) 1% (0-3) 0% (0-3) Neutrophils # (Auto) 5.8x10^3uL (1.8-7.7) 5.2x10^3uL (1.8-7.7) Lymphocytes # (Auto) 0.8x10^3/uL (1.0-4.8) 0.7x10^3/uL (1.0-4.8) Monocytes # (Auto) 0.3x10^3/uL (0.0-1.1) 0.4x10^3/uL (0.0-1.1) Eosinophils # (Auto) 0.0x10^3/uL (0.0-0.7) 0.0x10^3/uL (0.0-0.7) Basophils # (Auto) 0.0x10^3/uL (0.0-0.2) 0.0x10^3/uL (0.0-0.2) Prothrombin Time 14.2SEC (11.7-14.0) Prothromb Time International Ratio 1.2 (0.8-1.1) Activated Partial Thromboplast Time 31SEC (24-38) Sodium Level 128mmol/L (136-145) 132mmol/L (136-145) Potassium Level 3.7mmol/L (3.5-5.1) 3.5mmol/L (3.5-5.1) Chloride Level 88mmol/L (98-107) 95mmol/L (98-107) Carbon Dioxide Level 17mmol/L (21-32) 26mmol/L (21-32) Anion Gap 23 (6-14) 11 (6-14) Blood Urea Nitrogen 10mg/dL (7-20) 8mg/dL (7-20) Creatinine 0.8mg/dL (0.6-1.0) 0.6mg/dL (0.6-1.0) Estimated GFR (Cockcroft-Gault) 69.2 96.4 BUN/Creatinine Ratio 13 (6-20) 13 (6-20) Glucose Level 115mg/dL (70-99) 111mg/dL (70-99) Calcium Level 9.3mg/dL (8.5-10.1) 9.0mg/dL (8.5-10.1) Total Bilirubin 1.4mg/dL (0.2-1.0) 2.0mg/dL (0.2-1.0) Aspartate Amino Transf (AST/SGOT) 111U/L (15-37) 80U/L (15-37) Alanine Aminotransferase (ALT/SGPT) 91U/L (14-59) 81U/L (14-59) Alkaline Phosphatase 75U/L (46-116) 71U/L (46-116) Creatine Kinase 87U/L (26-192) Creatine Kinase MB (Mass) 2.5ng/mL (0.0-3.6) Creatine Kinase MB Relative Index 2.9% (0-4) Troponin I Quantitative < 0.017ng/mL (0.000-0.055) MM-Cub-L-Type Natriuretic Peptide 282pg/mL (0-449) Total Protein 8.0g/dL (6.4-8.2) 7.8g/dL (6.4-8.2) Albumin 4.1g/dL (3.4-5.0) 3.9g/dL (3.4-5.0) Albumin/Globulin Ratio 1.1 (1.0-1.7) 1.0 (1.0-1.7) Lipase 91U/L (73-393) Ethyl Alcohol Level 16mg/dL (0-10) Magnesium Level 1.4mg/dL (1.8-2.4) Triglycerides Level 43mg/dL (0-150) Cholesterol Level 226mg/dL (0-200) LDL Cholesterol, Calculated 67mg/dL (0-100) VLDL Cholesterol, Calculated 9mg/dL (0-40) HDL Cholesterol > 150mg/dL (40-60) Cholesterol/HDL Ratio 1.0 MIGUEL ANGUIANO MD Jul 13, 2016 15:24
[2016-07-13] MEDS: THIAMINE 100 MG TABLET. PO SCH (16:00)
[2016-07-13] MEDS ORDERED: CEFTRIAXONE SODIUM 1 GM in IV NORMAL SALINE 50ML 50 ML IV SCH (18:00)
[2016-07-13 19:00] VITALS: BP 162/84
[2016-07-13 20:12] LABS: HEP A IGM ABDY Negative (Negative)
[2016-07-13] MEDS ORDERED: SIMVASTATIN 40 MG TABLET. PO SCH (21:00)
[2016-07-13 23:00] VITALS: BP 185/99
[2016-07-13] MEDS ORDERED: AMLODIPINE BESYLATE 10 MG TABLET. PO ONE (23:30)
[2016-07-14 02:53] VITALS: BP 116/77
[2016-07-14 07:00] VITALS: BP 128/71
[2016-07-14 08:48] LABS: VITAMIN-B12 731 pg/mL (247-911)
[2016-07-14] MEDS ORDERED: AMLODIPINE BESYLATE 10 MG TABLET. PO SCH (09:00)
[2016-07-14 09:03] LABS: FOLATE > 20.00 ng/ml (3.2-20.0)
[2016-07-14] MEDS ORDERED: VITAMIN B12,B9,B6 COMPLEX 1 TABLET. PO SCH (09:15)
[2016-07-14] MEDS ORDERED: MAGNESIUM SULFATE 2GM 50 ML IV ONE (09:15)
[2016-07-14] MEDS ORDERED: ASPI325T11 PO (09:21)
[2016-07-14] MEDS ORDERED: CYAN1TAB19 PO ×2 (09:21→16:10)
[2016-07-14] MEDS ORDERED: CIPR250T30 PO ×2 (09:21→16:08)
[2016-07-14] MEDS ORDERED: ATOR20TA58 PO ×2 (09:21→16:10)
[2016-07-14] MEDS ORDERED: AMLO5TAB4 PO ×2 (09:21→16:09)
[2016-07-14] MEDS: ASPIRIN ENTERIC COATED 325 MG TABLET.DR. PO SCH (11:33)
[2016-07-14] MEDS: THIAMINE 100 MG TABLET. PO SCH (11:33)
--- NOTE | 2016-07-14 11:33 | PDOC ---
PROGRESS NOTES Assessment Problems Medical Problems: (1) Alcohol abuse Status: Acute (2) Hyponatremia Status: Acute (3) Seizure Status: Acute (4) UTI (urinary tract infection) Status: Acute Seizure x 1 on 07/12/16. Metabolic encephalopathy. Alcohol use. Hyponatremia, 128 at admission Plan Will read EEG No AED is recommended at this time for single provoked seizure. Brain MRI if Caesar recurs Subjective No complaints Objective Vital Signs Date Time Temp Pulse Resp B/P Pulse Ox O2 Delivery O2 Flow Rate FiO2 07/14/16 07:00 97.5 105 18 128/71 94 2L PRN 97.5 Intake and Output 07/14/16 07:00 Intake Total 1110 ml Output Total 2000 ml Balance -890 ml Intake Oral 1060 ml IV Total 50 ml Output Urine Total 2000 ml # Voids 3 # Bowel Movements 1 PHYSICAL EXAM Alert. Oriented to time, place and person. PERRL. EOMI. CN: no focal findings. Muscle tone: normal. Muscle strength: 5/5 DTR: 2+ Plantar reflex: flexor Gait: normal. Sensory exam: no abnormal findings. No cerebellar signs elicited. Review of Relevant I have reviewed the following items luz (where applicable) has been applied. Labs Laboratory Tests Test 07/12/16 15:10 07/12/16 15:20 07/13/16 04:10 Urine Collection Type U cath Urine Color Dk yellow Urine Clarity Turbid Urine pH 5.5 Urine Specific [place] 1.015 Urine Protein 100mg/dL (NEG-TRACE) Urine Glucose (UA) Negativemg/dL (NEG) Urine Ketones (Stick) 15mg/dL (NEG) Urine Blood Moderate (NEG) Urine Nitrite Positive (NEG) Urine Bilirubin Negative (NEG) Urine Urobilinogen Dipstick 1.0mg/dL (0.2 mg/dL) Urine Leukocyte Esterase Large (NEG) Urine RBC 3-5/HPF (0-2) Urine WBC Tntc/HPF (0-4) Urine Squamous Epithelial Cells Occ/LPF Urine Transitional Epithelial Cells Occ/LPF Urine Renal Epithelial Cells Occ/LPF Urine Bacteria Many/HPF (0-FEW) Urine Hyaline Casts Occasional/HPF Urine Mucus Slight/LPF Urine Opiates Screen Neg (NEG) Urine Methadone Screen Neg (NEG) Urine Barbiturates Neg (NEG) Urine Phencyclidine Screen Neg (NEG) Urine Amphetamine/Methamphetamine Neg (NEG) Urine Benzodiazepines Screen Neg (NEG) Urine Cocaine Screen Neg (NEG) Urine Cannabinoids Screen Neg (NEG) Urine Ethyl Alcohol Pos (NEG) White Blood Count 7.0x10^3/uL (4.0-11.0) 6.4x10^3/uL (4.0-11.0) Red Blood Count 3.23x10^6/uL (3.50-5.40) 3.25x10^6/uL (3.50-5.40) Hemoglobin 12.0g/dL (12.0-15.5) 12.0g/dL (12.0-15.5) Hematocrit 33.9% (36.0-47.0) 33.7% (36.0-47.0) Mean Corpuscular Volume 105fL (79-100) 104fL (79-100) Mean Corpuscular Hemoglobin 37pg (25-35) 37pg (25-35) Mean Corpuscular Hemoglobin Concent 36g/dL (31-37) 36g/dL (31-37) Red Cell Distribution Width 15.2% (11.5-14.5) 15.1% (11.5-14.5) Platelet Count 229x10^3/uL (140-400) 184x10^3/uL (140-400) Neutrophils (%) (Auto) 83% (31-73) 81% (31-73) Lymphocytes (%) (Auto) 11% (24-48) 11% (24-48) Monocytes (%) (Auto) 5% (0-9) 7% (0-9) Eosinophils (%) (Auto) 1% (0-3) 0% (0-3) Basophils (%) (Auto) 1% (0-3) 0% (0-3) Neutrophils # (Auto) 5.8x10^3uL (1.8-7.7) 5.2x10^3uL (1.8-7.7) Lymphocytes # (Auto) 0.8x10^3/uL (1.0-4.8) 0.7x10^3/uL (1.0-4.8) Monocytes # (Auto) 0.3x10^3/uL (0.0-1.1) 0.4x10^3/uL (0.0-1.1) Eosinophils # (Auto) 0.0x10^3/uL (0.0-0.7) 0.0x10^3/uL (0.0-0.7) Basophils # (Auto) 0.0x10^3/uL (0.0-0.2) 0.0x10^3/uL (0.0-0.2) Prothrombin Time 14.2SEC (11.7-14.0) Prothromb Time International Ratio 1.2 (0.8-1.1) Activated Partial Thromboplast Time 31SEC (24-38) Sodium Level 128mmol/L (136-145) 132mmol/L (136-145) Potassium Level 3.7mmol/L (3.5-5.1) 3.5mmol/L (3.5-5.1) Chloride Level 88mmol/L (98-107) 95mmol/L (98-107) Carbon Dioxide Level 17mmol/L (21-32) 26mmol/L (21-32) Anion Gap 23 (6-14) 11 (6-14) Blood Urea Nitrogen 10mg/dL (7-20) 8mg/dL (7-20) Creatinine 0.8mg/dL (0.6-1.0) 0.6mg/dL (0.6-1.0) Estimated GFR (Cockcroft-Gault) 69.2 96.4 BUN/Creatinine Ratio 13 (6-20) 13 (6-20) Glucose Level 115mg/dL (70-99) 111mg/dL (70-99) Calcium Level 9.3mg/dL (8.5-10.1) 9.0mg/dL (8.5-10.1) Total Bilirubin 1.4mg/dL (0.2-1.0) 2.0mg/dL (0.2-1.0) Aspartate Amino Transf (AST/SGOT) 111U/L (15-37) 80U/L (15-37) Alanine Aminotransferase (ALT/SGPT) 91U/L (14-59) 81U/L (14-59) Alkaline Phosphatase 75U/L (46-116) 71U/L (46-116) Creatine Kinase 87U/L (26-192) Creatine Kinase MB (Mass) 2.5ng/mL (0.0-3.6) Creatine Kinase MB Relative Index 2.9% (0-4) Troponin I Quantitative < 0.017ng/mL (0.000-0.055) TX-Abj-V-Type Natriuretic Peptide 282pg/mL (0-449) Total Protein 8.0g/dL (6.4-8.2) 7.8g/dL (6.4-8.2) Albumin 4.1g/dL (3.4-5.0) 3.9g/dL (3.4-5.0) Albumin/Globulin Ratio 1.1 (1.0-1.7) 1.0 (1.0-1.7) Lipase 91U/L (73-393) Ethyl Alcohol Level 16mg/dL (0-10) Magnesium Level 1.4mg/dL (1.8-2.4) Triglycerides Level 43mg/dL (0-150) Cholesterol Level 226mg/dL (0-200) LDL Cholesterol, Calculated 67mg/dL (0-100) VLDL Cholesterol, Calculated 9mg/dL (0-40) HDL Cholesterol > 150mg/dL (40-60) Cholesterol/HDL Ratio 1.0 Vitamin B12 Level 731pg/mL (247-911) Serum Folate > 20.00ng/ml (3.2-20.0) Hepatitis A IgM Antibody Negative (Negative) Hepatitis B Surface Antigen Negative (Negative) Hepatitis B Core IgM Antibody Negative (Negative) Hepatitis C Antibody <0.1s/co ratio (0.0-0.9) Microbiology 07/12/16 Urine Culture - Preliminary, Resulted 07/12/16 Urine Culture Result 1 (QUINTEN) - Preliminary, Resulted Medications Current Medications Sodium Chloride (Iv Sodium Chloride 0.9% 1000ml Bag) 1,000 ml @ 1,000 mls/hr Q1H IV Last administered on 07/12/16t 16:08; Start 07/12/16 at 15:39; Stop at 16:38; Status DC Ondansetron HCl 4 mg 4 mg PRN Q8HRS PRN IV NAUSEA/VOMITING; Start 07/12/16 at 17 :30; Stop 07/13/16 at 17:29; Status DC Sodium Chloride 1,000 ml @ 120 mls/hr Q8H20M IV Last administered on 07/13/16 11:12; Start 07/12/16 at 17:27; Stop 07/13/16 at 17:26; Status DC Ceftriaxone Sodium (Rocephin 1gm Ivpb For Omni) 50 ml @ 100 mls/hr 1X ONCE IV Last administered on 07/12/16 17:51; Start 07/12/16 at 18:15; Stop 07/12/16 at 18:44; Status DC Metoprolol Tartrate (Lopressor) 25 mg BID PO Last administered on 07/13/16 20: 50; Start 07/12/16 at 21:00 Aspirin (Ecotrin) 325 mg DAILYWBKFT PO Last administered on 07/13/16 08:02; Start 07/13/16 at 08:00 Simvastatin 40 mg 40 mg QHS PO Last administered on 07/13/16 20:50; Start at 21:00; Stop 07/13/16 at 23:18; Status DC Ceftriaxone Sodium/Sodium Chloride (Rocephin/Iv Sodium Chloride 0.9% 50ml) 50 ml @ 100 mls/hr Q24H IV Last administered on 07/13/16 17:42; Start 07/13/16 at 18:00 Thiamine HCl (Vitamin B-1) 100 mg DAILY PO Last administered on 07/13/16 16:00 ; Start 07/13/16 at 16:15 Amlodipine Besylate (Norvasc) 10 mg DAILY PO ; Start 07/14/16 at 09:00 Amlodipine Besylate (Norvasc) 10 mg 1X ONCE PO Last administered on 07/13/16 23:25; Start 07/13/16 at 23:30; Stop 07/13/16 at 23:31; Status DC Atorvastatin Calcium 20 mg 20 mg QHS PO ; Start 07/14/16 at 21:00 Magnesium Sulfate/ Dextrose (Magnesium Sulfate PREMIX 2GM) 50 ml @ 25 mls/hr 1X ONCE IV ; Start 07/14/16 at 09:15; Stop 07/14/16 at 11:14; Status DC Vitamin B Complex (Folbic Tablet) 1 tab DAILY PO ; Start 07/14/16 at 09:15 Active Scripts Active Cipro (Ciprofloxacin Hcl) 250 Mg Tablet 1 Tab PO BID Atorvastatin Calcium 20 Mg Tablet 20 Mg PO QHS Norvasc (Amlodipine Besylate) 5 Mg Tablet 1 Tab PO DAILY Aspirin Ec (Aspirin) 325 Mg Tablet. 325 Mg PO DAILYWBKFT Folbic Tablet (Cyanocobalamin/Fa/Pyridoxine) 1 Each Tablet 1 Tab PO DAILY Reported Lisinopril 20 Mg Tablet 1 Tab PO DAILY Vitals/I & O Vital Sign - Last 24 Hours 07/13/16 07/13/16 07/13/16 07/13/16 14:56 19:00 19:27 20:50 Temp 97.7 97.7 97.7 97.7 Pulse 76 83 83 Resp 16 B/P 162/83 162/84 162/84 Pulse Ox 97 97 O2 Delivery Room Air Room Air Room Air 07/13/16 07/13/16 07/14/16 07/14/16 23:00 23:25 02:53 07:00 Temp 96.3 96.6 97.5 96.3 96.6 97.5 Pulse 76 76 67 105 Resp 16 16 18 B/P 185/99 185/99 116/77 128/71 Pulse Ox 98 96 94 O2 Delivery Room Air Room Air 2L PRN Intake and Output 07/13/16 07/13/16 07/14/16 15:00 23:00 07:00 Intake Total 880 ml 230 ml 0 ml Output Total 2000 ml Balance 880 ml -1770 ml 0 ml HALLIE OWUSU MD Jul 14, 2016 11:33
[2016-07-14 11:42] VITALS: BP 152/78
[2016-07-14] MEDS: METOPROLOL TART IMMED RELEASE 25 MG TABLET. PO SCH (11:43)
[2016-07-14 12:42] VITALS: BP 140/84
--- NOTE | 2016-07-14 15:40 | PDOC3 ---
Discharge Summary Visit Information Date of Admission: Jul 12, 2016 Date of Discharge: Jul 14, 2016 Admitting Diagnosis: seizure Final Diagnosis Seizure Hyponatremia UTI Hypertension CVA. 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, hx TIA noted recent noncompliance meds anxiety d/o Problems Medical Problems: (1) Alcohol abuse Status: Acute (2) Hyponatremia Status: Acute (3) Seizure Status: Acute (4) UTI (urinary tract infection) Status: Acute Brief Hospital Course Allergies Allergies Coded Allergies Type Severity Reaction Last Updated Verified No Known Drug Allergies 07/12/16 No Vital Signs Vital Signs Date Time Temp Pulse Resp B/P Pulse Ox O2 Delivery O2 Flow Rate FiO2 07/14/16 12:42 97.8 88 18 140/84 95 2L PRN 97.8 Lab Results Laboratory Tests Test 07/13/16 04:10 White Blood Count 6.4x10^3/uL (4.0-11.0) Red Blood Count 3.25x10^6/uL (3.50-5.40) Hemoglobin 12.0g/dL (12.0-15.5) Hematocrit 33.7% (36.0-47.0) Mean Corpuscular Volume 104fL (79-100) Mean Corpuscular Hemoglobin 37pg (25-35) Mean Corpuscular Hemoglobin Concent 36g/dL (31-37) Red Cell Distribution Width 15.1% (11.5-14.5) Platelet Count 184x10^3/uL (140-400) Neutrophils (%) (Auto) 81% (31-73) Lymphocytes (%) (Auto) 11% (24-48) Monocytes (%) (Auto) 7% (0-9) Eosinophils (%) (Auto) 0% (0-3) Basophils (%) (Auto) 0% (0-3) Neutrophils # (Auto) 5.2x10^3uL (1.8-7.7) Lymphocytes # (Auto) 0.7x10^3/uL (1.0-4.8) Monocytes # (Auto) 0.4x10^3/uL (0.0-1.1) Eosinophils # (Auto) 0.0x10^3/uL (0.0-0.7) Basophils # (Auto) 0.0x10^3/uL (0.0-0.2) Sodium Level 132mmol/L (136-145) Potassium Level 3.5mmol/L (3.5-5.1) Chloride Level 95mmol/L (98-107) Carbon Dioxide Level 26mmol/L (21-32) Anion Gap 11 (6-14) Blood Urea Nitrogen 8mg/dL (7-20) Creatinine 0.6mg/dL (0.6-1.0) Estimated GFR (Cockcroft-Gault) 96.4 BUN/Creatinine Ratio 13 (6-20) Glucose Level 111mg/dL (70-99) Calcium Level 9.0mg/dL (8.5-10.1) Magnesium Level 1.4mg/dL (1.8-2.4) Total Bilirubin 2.0mg/dL (0.2-1.0) Aspartate Amino Transf (AST/SGOT) 80U/L (15-37) Alanine Aminotransferase (ALT/SGPT) 81U/L (14-59) Alkaline Phosphatase 71U/L (46-116) Total Protein 7.8g/dL (6.4-8.2) Albumin 3.9g/dL (3.4-5.0) Albumin/Globulin Ratio 1.0 (1.0-1.7) Triglycerides Level 43mg/dL (0-150) Cholesterol Level 226mg/dL (0-200) LDL Cholesterol, Calculated 67mg/dL (0-100) VLDL Cholesterol, Calculated 9mg/dL (0-40) HDL Cholesterol > 150mg/dL (40-60) Cholesterol/HDL Ratio 1.0 Vitamin B12 Level 731pg/mL (247-911) Serum Folate > 20.00ng/ml (3.2-20.0) Hepatitis A IgM Antibody Negative (Negative) Hepatitis B Surface Antigen Negative (Negative) Hepatitis B Core IgM Antibody Negative (Negative) Hepatitis C Antibody <0.1s/co ratio (0.0-0.9) Brief Hospital Course Ms. Sanz is a 81 old admit confused, lethargic, + encephalopahthy, EtOH intake at home had seizure X1 prior TIA, had stopped meds macrocytosis of EtOH intake Discharge Information Condition at Discharge: Improved Follow Up: Weeks Disposition/Orders: D/C to Home Scheduled Amlodipine Besylate (Norvasc) 1 TAB PO DAILY Aspirin (Aspirin Ec) 325 MG PO DAILYWBKFT Atorvastatin Calcium (Atorvastatin Calcium) 20 MG PO QHS Ciprofloxacin Hcl (Cipro) 1 TAB PO BID Cyanocobalamin/Fa/Pyridoxine (Folbic Tablet) 1 TAB PO DAILY Lisinopril (Lisinopril) 1 TAB PO DAILY (Reported) Patient Instructions Patient Instructions f/u PCP EtOH cessation restart home meds time > 30 min discussed with family MOISES WESLEY MD Jul 14, 2016 15:40
[2016-07-14] MEDS ORDERED: ASPI325T4 PO (16:09)
[2016-07-14] MEDS ORDERED: LISI-334 PO (16:10)
--- NOTE | 2016-07-14 18:20 | EEG ---
DATE OF SERVICE: 07/14/2016 ATTENDING PHYSICIAN: Dr. Cristina. EEG NUMBER: [id number] performed on 07/14/2016. OBJECTIVE: The patient is a 81-year-old female with new seizure. DESCRIPTION: This is a digital study. Electrodes are placed according to the international 10-20 system. Bipolar and referential montages are available. Activation procedures typically include hyperventilation and intermittent photic stimulation. INTERPRETATION: The waking background consists of 10-11 Hz, 50-100 microvolt activity, symmetrically distributed over parietooccipital regions and reactive to eye opening. Hyperventilation and intermittent photic stimulation is noncontributory. Stage I sleep is achieved with normal electroencephalogram patterns. IMPRESSION: This electroencephalogram with the patient awake and asleep is within normal limits. There is no focal, paroxysmal, or epileptiform activity. Thank you for letting us help with this patient's care. HALLIE OWUSU MD DR: MIGUELINA/bonnie JOB#: [id number] / [id number]
[2016-07-14] MEDS ORDERED: ATORVASTATIN CALCIUM 20 MG TABLET PO SCH (21:00)
== END 2016-07-14 16:00 | disposition home health service (06) | DRG 100 ==
LOC: ER 14:44 → 5 NORTH 17:20
PROVIDERS: ADMIT Internal Medicine Hematology & Oncology; ATTEND Internal Medicine Hematology & Oncology
DX: R56.9 Unspecified convulsions (principal); G93.41 Metabolic encephalopathy; N39.0 Urinary tract infection, site not specified; E87.1 Hypo-osmolality and hyponatremia; R65.10 Systemic inflammatory response syndrome (SIRS) of non-infectious origin without acute organ dysfunction; D53.9 Nutritional anemia, unspecified; D75.89 Other specified diseases of blood and blood-forming organs; E78.5 Hyperlipidemia, unspecified; F10.10 Alcohol abuse, uncomplicated; F41.9 Anxiety disorder, unspecified; I10 Essential (primary) hypertension; Z79.82 Long term (current) use of aspirin; Z79.899 Other long term (current) drug therapy; Z82.49 Family history of ischemic heart disease and other diseases of the circulatory system; Z86.73 Personal history of transient ischemic attack (TIA), and cerebral infarction without residual deficits; Z91.19 Patient's noncompliance with other medical treatment and regimen
CPT/HCPCS: 36415; 70450; 71010; 80053; 80061; 80074; 81001; 82553; 82607; 82746; 83690; 83735; 83880; 84484; 85027; 85610; 85730; 87086; 87186; 93005; 95816; 96361; 96365; G0480; G0481; J0690; J0696; J7030; J7060; 99285-25